=== PATIENT | female | born 1960 | race Caucasian/White ===

== ENCOUNTER 2019-03-27 08:18 | Emergency (ER) | payer OTHER ==
[~2019-03-27] VITALS: Ht 160 cm; Wt 56.7 kg
--- NOTE | 2019-03-27 08:18 | NUR ---
Patient BIBA BLS, transferred to bed 3. RN evaluating patient at bedside.
[2019-03-27 08:21] VITALS: BP 140/66
--- NOTE | 2019-03-27 08:30 | NUR ---
c/o vomiting after taking a norco with beer and marimjuana today adds colds sypoms >1 wk cough congstion fever fatigue
[2019-03-27] MEDS ORDERED: ACETAMINOPHEN 325 MG TAB PO ONE (09:25)
[2019-03-27] MEDS ORDERED: ONDANSETRON 4 MG ODT PO ONE (09:25)
[2019-03-27 10:20] VITALS: BP 121/78
--- NOTE | 2019-03-27 10:20 | NUR ---
PT LEFT THE PAULIE [facility]ACOBS[facility] HER PAPERWORK
--- NOTE | 2019-03-27 10:20 | NUR ---
Patient discharged with v/s stable. Written and verbal after care instructions given and explained. Patient alert, oriented and verbalized understanding of instructions. Ambulatory with steady gait. All questions addressed prior to discharge. ID band removed. Patient advised to follow up with PMD. Rx of TIRSO LEACHT/ HOLA NATHAN given. Patient educated on indication of medication including possible reaction and side effects. Opportunity to ask questions provided and answered.
== END 2019-03-27 10:20 | disposition home or self-care (01) ==
LOC: MED 08:18
DX: J40 Bronchitis, not specified as acute or chronic (principal); J06.9 Acute upper respiratory infection, unspecified; R11.2 Nausea with vomiting, unspecified; F17.200 Nicotine dependence, unspecified, uncomplicated; F12.90 Cannabis use, unspecified, uncomplicated; Z88.5 Allergy status to narcotic agent
CPT/HCPCS: 81002; 81025; 99283; Q0162